=== PATIENT | female | born 1945 | race Caucasian/White ===

== ENCOUNTER 2017-03-19 14:29 | Inpatient (IN) | payer MEDICARE ==
[~2017-03-19] VITALS: Ht 154.9 cm; Wt 59.6 kg
[2017-03-19 14:49] LABS: HEMOGLOBIN 13.3 gm/dl (12.3-15.3); RED BLOOD COUNT 4.15 M/UL (4.00-5.10); WHITE BLOOD COUNT 28.4 K/UL (4.5-11.0)
[2017-03-19 15:10] LABS: BUN/CREATININE RATIO 24 (0-10)
[2017-03-19] MEDS ORDERED: VALIUM 5 MG TAB5 MG PO (21:36)
[2017-03-19] MEDS ORDERED: LISINOPRIL-HCT1 EAC1 PO (21:36)
[2017-03-19] MEDS ORDERED: TYLENOL WITH C1 EACH PO (21:37)
[2017-03-19] MEDS ORDERED: PROMETHAZINE HC25 M1 PO (21:38)
[2017-03-19] MEDS ORDERED: LEVAQUIN750 MG PO (21:40)
[2017-03-19] MEDS ORDERED: PREDNISONE20 MG PO (21:41)
[2017-03-19] MEDS ORDERED: SYMBICORT 160-1 INHA INH (21:47)
[2017-03-19] MEDS ORDERED: NITROGLYCERIN6.5 MG PO (21:47)
[2017-03-19] MEDS ORDERED: PLAVIX 75 MG TA75 MG PO (21:48)
[2017-03-19] MEDS ORDERED: ALLEGRA-D 24 H1 EACH PO (21:49)
[2017-03-19] MEDS ORDERED: CRESTOR 10 MG T10 MG PO ×2 (21:51→21:55)
[2017-03-19] MEDS ORDERED: METOPROLOL TART25 MG PO (21:52)
[2017-03-19] MEDS ORDERED: PROAIR HFA8.5 GM INH (21:53)
[2017-03-19] MEDS ORDERED: LASIX20 MG PO (21:54)
[2017-03-20 04:16] LABS: HEMOGLOBIN 11.5 gm/dl (12.3-15.3)
[2017-03-20 04:20] LABS: RED BLOOD COUNT 3.7 M/UL (4.00-5.10)
[2017-03-20 04:43] LABS: BUN/CREATININE RATIO 34 (0-10)
[2017-03-21 05:36] LABS: RED BLOOD COUNT 3.51 M/UL (4.00-5.10)
[2017-03-21 06:11] LABS: BUN/CREATININE RATIO 37 (0-10)
[2017-03-22 06:04] LABS: BUN/CREATININE RATIO 30 (0-10)
[2017-03-22] MEDS ORDERED: SERTRALINE HCL25 MG PO (17:32)
[2017-03-22] MEDS ORDERED: MEDROL DOSEPAK 24 MG PO (17:32)
[2017-03-22] MEDS ORDERED: LEVOFLOXACIN500 MG PO (17:33)
== END 2017-03-22 18:45 | disposition home or self-care (01) | DRG 189 ==
LOC: ER1 14:29 → PROG CARE 16:48 → ZEROF 16:48 → CCU 21:15 → PROG CARE 03-20 14:03 → M/S 03-21 20:59
PROVIDERS: Family Medicine; Internal Medicine; ADMIT Internal Medicine
PROC: 5A09457 Assistance with Respiratory Ventilation, 24-96 Consecutive Hours, Continuous Positive Airway Pressure (ICD-10-PCS; principal; 2017-03-19)
DX: J96.01 Acute respiratory failure with hypoxia (principal); J44.0 Chronic obstructive pulmonary disease with (acute) lower respiratory infection; J44.1 Chronic obstructive pulmonary disease with (acute) exacerbation; J20.9 Acute bronchitis, unspecified; F17.210 Nicotine dependence, cigarettes, uncomplicated; J96.02 Acute respiratory failure with hypercapnia; D72.829 Elevated white blood cell count, unspecified; F41.9 Anxiety disorder, unspecified; Z91.14 Patient's other noncompliance with medication regimen; I10 Essential (primary) hypertension; E78.5 Hyperlipidemia, unspecified; R74.0 Nonspecific elevation of levels of transaminase and lactic acid dehydrogenase [LDH]
CPT/HCPCS: 36415; 36600; 71010; 80048; 80053; 80202; 82550; 82553; 82803; 83036; 83605; 83735; 83874; 83880; 84100; 84132; 84439; 84443; 84484; 85025; 86140; 87040; 93005; 94640; 94660; 94664; 96365; 96366; 96367; 96375; 99291; J0360; J1650; J1940; J1956; J2920; J2930; J3370; J7050; J7070; Q0162